=== PATIENT | female | born 1970 | race Caucasian/White ===

== ENCOUNTER 2018-07-02 18:03 | Emergency (ER) | payer OTHER ==
[2018-07-02] MEDS ORDERED: Acetaminophen 325 MG Tab PO ONE (19:17)
--- NOTE | 2018-07-02 19:56 | CT ---
CT cervical spine Technique: Multiple axial sections were obtained from above C1 inferiorly to the mid T2 level. Reconstructed sagittal and coronal images were reviewed. Findings: Details are less than optimal secondary to patient body habitus. Vertebral body heights are maintained. Disc spaces are fairly well preserved. Vertebral bodies and posterior arches appear to be intact without fracture being seen. No bony central or bony neural foraminal stenosis is seen. No abnormal subluxation is seen. Slight scoliosis is noted most likely positional. Impression: 1. Incidental finding. Nothing acute is appreciated on CT study of the cervical spine. Diagnostic code #2
--- NOTE | 2018-07-02 19:59 | CT ---
Head CT Technique: Multiple axial sections through the brain were obtained. Intravenous contrast not utilized. Comparison: No previous study. Findings: Small low density finding is seen within both basal ganglia which is slightly larger on the left side. These findings are most likely due to slightly prominent perivascular spaces. No other abnormal parenchymal densities are seen. There is no evidence of intracranial hemorrhage. No midline shift or mass effect is seen. Bone window settings were reviewed which showed no acute calvarial abnormality. Visualized sinuses are clear. Impression: 1. Incidental finding as noted above. Nothing acute is identified on noncontrast head CT exam. Diagnostic code #2
[2018-07-02] MEDS ORDERED: Ondansetron 4 MG Tab.DIS PO ONE (20:15)
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
--- NOTE | 2018-07-02 20:31 | CR ---
Left forearm: 2 views of the left forearm were obtained. Comparison: No prior forearm study. Soft tissue swelling is identified. Small calcifications are noted off the lateral epicondyle of the distal humerus which appeared to be old. Soft tissue swelling is noted. No discrete fracture or other bony abnormality is seen. Impression: 1. Incidental findings. No acute bony abnormality is appreciated on left forearm study. Diagnostic code #2
[2018-07-02] MEDS ORDERED: traMADol 50 MG Tab PO ONE (20:34)
--- NOTE | 2018-07-03 07:58 | CR ---
Chest: Two views of the chest were obtained. Comparison: No prior chest x-ray. Heart size and mediastinum are normal. Lungs are clear. Bony structures appear within normal limits. Impression: 1. Nothing acute is seen on two-view chest x-ray. Diagnostic code #1
--- NOTE | 2018-07-03 07:58 | CR ---
Left shoulder: Three views of the left shoulder were obtained. Comparison: No prior shoulder exam. Mild degenerative change is noted within the acromioclavicular joint with slight inferior spurring. Glenohumeral joint appears within normal limits. No acute fracture or dislocation is seen. Impression: 1. Slight degenerative change as described above. Nothing acute is appreciated on left humerus exam. Diagnostic code #2
== END 2018-07-02 20:57 | disposition home or self-care (01) ==
LOC: JD.ED 18:03
DX: S53.402A Unspecified sprain of left elbow, initial encounter (principal); S43.402A Unspecified sprain of left shoulder joint, initial encounter; F17.210 Nicotine dependence, cigarettes, uncomplicated; V89.2XXA Person injured in unspecified motor-vehicle accident, traffic, initial encounter
CPT/HCPCS: 70450; 71046; 72125; 73030; 73090; 99284; A9270; 99283

== ENCOUNTER 2021-08-25 11:28 | Emergency (ER) | payer BC, OTHER ==
[2021-08-25] MEDS ORDERED: traMADol 50 MG Tab PO ONE (14:00)
== END 2021-08-25 15:14 | disposition home or self-care (01) ==
LOC: JD.ED 11:28
DX: M25.561 Pain in right knee (principal); Z72.0 Tobacco use
CPT/HCPCS: 73560; 99283; A9270; 29505